=== PATIENT | male | born 1955 | race Caucasian/White ===

== ENCOUNTER 2018-04-23 01:51 | Outpatient (CLI) | payer BC, SELFPAY ==
[2018-04-23 08:29] LABS: Cholesterol 280 mg/dL (50-200); HDL Cholesterol 40 mg/dL (40-60); LDL CHOLESTEROL 209 mg/dL (<100); Triglyceride 174 mg/dL (30-150)
== END 2018-04-23 02:11 ==
PROVIDERS: PCP Nurse Practitioner; Visit Provider Nurse Practitioner
DX: E78.5 Hyperlipidemia, unspecified (principal)
CPT/HCPCS: 36415; 80061; 83721

== ENCOUNTER 2019-03-03 10:43 | Outpatient (CLI) | payer OTHER, SELFPAY | END 2019-03-03 11:03 | PROVIDERS: PCP Nurse Practitioner; Visit Provider Nurse Practitioner Family | DX: R00.2 Palpitations (principal); I49.3 Ventricular premature depolarization | CPT/HCPCS: 93225 ==

== ENCOUNTER 2019-03-08 00:54 | Outpatient (CLI) | payer OTHER, SELFPAY ==
--- NOTE | 2019-03-08 08:30 | ETT_ITS ---
*[facility]* *[facility]* [address] [place] [address] Stress Electrocardiography Dmitry protocol Date of study: 03/08/2019 *PATIENT PRESENTATION* Height: 177.8cm (70in) Blood Pressure: Weight: 113.6kg (250lb) BSA: 2.41m^2 Ordering physician: Jessica Sanchez Impressions: Pt developed what is likely a rate related LBBB at heart rates > 100 bpm. Stress test nondiagnostic: LBBB, poor quality tracings. Rec pharmaceutical MPI, echo, Holter, Summary: 1. Stress ECG conclusions: The stress ECG is non-diagnostic. Indication: R07.89. History: REASON FOR TESTING: STERNAL PAIN AND PALPITATIONS X 2-3 MONTHS. DID HAVE ASSOCIATED SHORTNESS OF GREATH WITH THE PALPITATIONS. PMH: DEPRESSION, ESSENTIAL HYPERTENSION, FATTY LIVER, ALCOHOLIC CIRRHOSIS, SLEEP APNEA. FAMILY HX: FATHER- HYPERTESION , TX AT AGE 52 WITH CABG 10 YEARS LATER, CAD. MOTHER- HYPERTENSION, ANGINA, CARDIAC STENTS. SMOKING: FORMER SMOKER X 25 YEARS. QUIT 40 YEARS AGO, DOES OCCAS. USE SMOKLESS TOBACCO. EXCERCISE: NONE Risk factors: Family history of coronary artery disease. Hypertension. Obesity. Dyslipidemia. Cholesterol: 280mg/dl. HDL: 40mg/dl. LDL: 209mg/dl. Triglycerides: 174mg/dl. ALLERGIES: PROCHLORPERAZINE, LISINOPRIL. MEDICATIONS:ACETAMINOPHEN 1000 MG BID NEEDED, ASPIRIN 81 MG DAILY, ATORVASTATIN 40 MG DAILY, HYDROCHLOROTHIAZIDE 25 MG DAILY, MULTIVITAMIN 1 DAILY, NAPROXEN SODIUM 220 MG NEEDED, NAPROXEN 500 MG BID NEEDED, OMEPRAZOLE 20 MG DAILY. Protocol: Dmitry protocol. Baseline ECG: LAST EKG 02/24/19- SINUS RHYTHM, FREQ. PAC'S. TODAY'S EKG-SINUS RHYTHYM, HR 68. Stress protocol: + +---+ +---+ !Stage !HR !BP (mmHg) !Sat! + +---+ +---+ !Baseline supine !68 !168/86 (113)!---! + +---+ +---+ !Baseline standing !77 !160/80 (107)!97%! + +---+ +---+ !Stage I; 1.7mph, 10degrees; 3 min !118!182/78 (113)!---! + +---+ +---+ !Stage II; 2.5mph, 12degrees; 3 min!143!194/76 (115)!96%! + +---+ +---+ !Recovery; 1 min !100!188/66 (107)!---! + +---+ +---+ !Recovery; 3 min !100!180/68 (105)!---! + +---+ +---+ !Recovery; 6 min !74 !160/76 (104)!---! + +---+ +---+ * Stress results: The rate-pressure product for the peak heart rate and blood pressure was 77855pl Hg/min. Stress ECG: EXCERCISE TESTING ENDED IN 6 MINS, 17 SECS DUE TO LBBB AND MEATING TARGET. MAX HR WAS 158, 101% OF TARGET. HYPERTENSIVE AT BASELINE, WITH A HYPERTENSIVE BLOOD PRESSURE RESPONSE. METS:7.47 ECTOPY: AT 39 SECONDS OF EXCERCISE, PT DEVELOPED A LEFT BUNDLE BRANCH BLOCK, WITH PVC'S. THIS CONTUED THROUGHOUT TESTING UNTIL 2:55 OF RECOVERY. ANGINA: NO REPORTED CHEST PAIN OR PRESSURE, DID REPORT A SENSATION OF FLUTTERING AT 4 MINS OF RECOVERY WITHOUT ANY ECTOPY ON EKG AT THE SAME TIME. ISCHEMIA: UNABLE TO APPRECIATE ANY ISCHEMIC CHANGES. FUNCTIIONAL CAPACITY: MILDLY DIMINISHED CAPACITY. The stress ECG is non-diagnostic. Study data: Jamie Kendall MD supervised and was readily available during the procedure. This study was interpreted by [facility]. Study status: Routine. Consent: The risks, benefits, and alternatives to the procedure were explained to the patient and informed consent was obtained. Procedure: Initial setup. A baseline ECG was recorded. Surface ECG leads and manual cuff blood pressure measurements were monitored. Heart sounds: Normal. Lung sounds: Normal. Treadmill exercise testing was performed using the Dmitry protocol. Study completion: The patient tolerated the procedure well and was discharged from the lab. Discharge: The patient left the laboratory in stable condition. Birthdate: Patient birthdate: 1955. Sex: Gender: male. Study date: Study date: 03/08/2019. Study time: 00:01 AM. Electronically signed by Jamie Kendall MD 03/08/2019 10:44
== END 2019-03-08 01:14 ==
PROVIDERS: PCP Nurse Practitioner; Visit Provider Nurse Practitioner Family
DX: R07.89 Other chest pain (principal); R94.31 Abnormal electrocardiogram [ECG] [EKG]; I44.7 Left bundle-branch block, unspecified; R00.2 Palpitations; R06.02 Shortness of breath; I10 Essential (primary) hypertension; E78.5 Hyperlipidemia, unspecified; Z82.49 Family history of ischemic heart disease and other diseases of the circulatory system; I49.3 Ventricular premature depolarization
CPT/HCPCS: 93016; 93018; 93227; 93017; 93226

== ENCOUNTER 2019-03-08 09:42 | Outpatient (CLI) | payer OTHER, SELFPAY ==
--- NOTE | 2019-03-09 13:22 | HOLTER_ITS ---
HOLTER MONITOR DATE OF DICTATION March 08, 2019 Baseline rhythm sinus. No supraventricular ectopy. Frequent single PVC, 2978 total, 3.6% total beat.10 couplet. No VT. Likely related bundle branch block pattern identified. No bradycardia. No symptoms. Average heart rate 75 beats per minute, range 60-127 beats per minute. 48-hour study. Jamie Kendall M.D. HINA/merlyn T - 03/09/2019
== END 2019-03-08 10:02 ==
PROVIDERS: PCP Nurse Practitioner; Visit Provider Nurse Practitioner Family
DX: R00.2 Palpitations (principal); I49.3 Ventricular premature depolarization
CPT/HCPCS: 93227; 93226

== ENCOUNTER 2019-03-08 18:02 | Outpatient (CLI) | payer OTHER, SELFPAY | END 2019-03-08 18:22 | PROVIDERS: PCP Nurse Practitioner; Referring Provider Nurse Practitioner; Visit Provider Internal Medicine Interventional Cardiology | DX: R69 Illness, unspecified (principal) ==

== ENCOUNTER 2019-03-09 12:57 | Outpatient (CLI) | payer OTHER, SELFPAY ==
[2019-03-09 14:29] LABS: TSH (W/Ref FT4) 1.54 uIU/mL (0.36-3.74)
== END 2019-03-09 13:17 ==
PROVIDERS: PCP Nurse Practitioner; Visit Provider Nurse Practitioner Family
DX: R00.2 Palpitations (principal)
CPT/HCPCS: 36415; 84443

== ENCOUNTER 2019-03-24 00:20 | Outpatient (CLI) | payer OTHER, SELFPAY ==
--- NOTE | 2019-03-24 07:01 | MERGEMPI_ITS ---
*[facility]* *[facility]* [address] [place] [address] Myocardial Perfusion Imaging - SPECT Dmitry protocol Date of study: 03/24/2019 *PATIENT PRESENTATION* Height: 177.8cm (70in) Blood Pressure: Weight: 113.6kg (250lb) BSA: 2.41m^2 Referring physician: Jamie Kendall MD Ordering physician: Jessica Sanchez Impressions: Normal perfusion by Tc99m Sestamibi Imaging. Summary: 1. Myocardial perfusion imaging: No myocardial perfusion defects noted. 2. The calculated left ventricular ejection fraction after stress: 53%. No left ventricular regional motion abnormality. 3. Stress: The target heart rate was not achieved. Test transitioned to pharmacologic when LBBB identified. 4. Rate related LBBB at 120 bpm. Indication: R07.9. History: REASON FOR TESTING: PATIENT TESTING TODAY FOR FURTHER RISK STRATIFICATION. FOR THE PAST 3 MONTHS HE REPORTS DULL SUBSTERNAL CHEST PAIN AND FLUTTERING FEELING, MOSTLY NOTED AT REST THAT HAPPENS EVERYDAY. TODAY HE DENIES CHEST PAIN BUT REPORTS OCCASIONAL FLUTTERING UPON ARRIVAL TO TESTING TODAY. NOTE: PATIENT HAD A NON DIAGNOSTIC REGULAR STRESS TEST 03/08/19, RETURNING TO MPI STRESS TEST TODAY. SIGNIFICANT PAST MEDICAL HISTORY: FATTY LIVER, NONALCOHOLIC STEATOHEPATITIS, ALCOHOLIC CIRRHOSIS OF LIVER WITHOUT ASCITES, OBSTRUCTIVE SLEEP APNEA. SMOKING STATUS: QUITE 1974; AT THAT TIME HE SMOKED FOR 4 YEARS 1 PPD. CURRENTLY OCCASIONALLY USES SMOKELESS TOBACCO AND HAS BEEN FOR APPROXIMATELY 25 YEARS. EXERCISE ROUTINE: DAILY ADL'S. Risk factors: Family history of coronary artery disease. Current tobacco use. Hypertension. Obesity. Dyslipidemia. Cholesterol: 280mg/dl. HDL: 40mg/dl. LDL: 209mg/dl. Triglycerides: 174mg/dl. ALLERGIES: LISINOPRIL, PROCHLORPERAZINE. MEDICATIONS: SERTRALINE 150 MG DAILY, OMEPRAZOLE 20 MG DAILY, ALEVE 220 MG PRN, MULTIVITAMIN DAILY, HYDROCHLOROTHIAZIDE 25 MG DAILY, ATORVASTATIN 40 MG DAILY, ASPIRIN 81 MG DAILY, ACETAMINOPHEN 1000 MG PRN. Imaging Technique: Protocol: Dmitry protocol. Acquisition: Gated SPECT; 1 day - rest/stress. The patient was imaged in the supine position. Attenuation correction used. Isotope administration: - Rest. Tc[99m]-sestamibi. Dose: 11.6mCi. Injection time: 08:25 AM. Injection to stress time: 00:45. - Stress. Tc[99m]-sestamibi. Dose: 36mCi. Injection time: 10:10 AM. 1-2 min before end of exercise Baseline ECG: SINUS BRADYCARDIA. 59 BPM. Stress protocol: + +---+ + + !Stage !HR !BP (mmHg) !Comments ! + +---+ + + !Baseline supine !59 !170/90 (117)! ! + +---+ + + !Baseline standing !70 !168/92 (117)! ! + +---+ + + !Stage I; 1.7mph, 10degrees; 3 min!114!190/80 (117)! ! + +---+ + + !Immediate post stress !124! ! ! + +---+ + + !Recovery; 1 min !98 !210/90 (130)! ! + +---+ + + !Baseline !66 !180/90 (120)! ! + +---+ + + !1 min !93 !170/80 (110)!Inject Regadenoson.! + +---+ + + !3 min !78 !160/88 (112)! ! + +---+ + + !6 min !72 !150/80 (103)! ! + +---+ + + * Stress results: STRESS TEST ENDED IN 5 MINUTES 43 SECONDS DUE TO LEFT BUNDLE BRANCH BLOCK. HYPERTENSIVE AT BASELINE NORMAL HEART RATE AND BLOOD PRESSURE RESPONSE TO EXERCISE. MAX HEART RATE:124 80 % OF TARGET HEART RATE ACHIEVED. MET'S: 6.43. NO ECTOPY. NO ANGINA. NO SIGNIFICANT ST SEGMENT CHANGES. UNABLE TO DETERMINE FUNCTIONAL CAPACITY D/T TRANSITION LEXISCAN REQUIRED. TRANSITIONED TO LEXISCAN STRESS TEST D/T LEFT BUNDLE BRANCH BLOCK OCCURING AFTER 3 MINUTES 46 SECONDS OF EXERCISE. STRESS TEST ENDED IN 6 MINUTES 34 SECONDS. HYPERTENSIVE AT BASELINE. NORMAL HEART RATE AND BLOOD PRESSURE RESPONSE TO LEXISCAN INJECTION. NO ECTOPY. CHEST PRESSURE ASSOCIATED WITH SOB AT APPROXIMATELY 1 MINUTE 30 SECONDS POST LEXISCAN INJECTION THAT SUBSIDED BY 3 MINUTES POST LEXISCAN INJECTION. NO SIGNIFICANT ST SEGMENT CHANGES. The target heart rate was not achieved. The rate-pressure product for the peak heart rate and blood pressure was 56563tg Hg/min. Myocardial perfusion: Imaging information: gated. No myocardial perfusion defects noted. Ventricular Function (Wall Motion): The calculated left ventricular ejection fraction after stress: 53%. No left ventricular regional motion abnormality. Study data: Jamie Kendall MD supervised and was readily available during the procedure. This study was interpreted by [facility]. Study status: Routine. Consent: The risks, benefits, and alternatives to the procedure were explained to the patient and informed consent was obtained. Procedure: Initial setup. A baseline ECG was recorded. Surface ECG leads and manual cuff blood pressure measurements were monitored. Heart sounds: Normal. Lung sounds: Normal. Treadmill exercise testing was performed using the Dmitry protocol. Study completion: All catheters inserted during the procedure were removed. The patient tolerated the procedure well and was discharged from the lab. Discharge: The patient left the laboratory in stable condition. Birthdate: Patient birthdate: 1955. Sex: Gender: male. Study date: Study date: 03/24/2019. Study time: 00:01 AM. Electronically signed by Jamie Kendall MD 03/24/2019 17:56
[2019-03-24] MEDS: Regadenoson 0.4 MG/5 ML SYR IVP (10:22)
== END 2019-03-24 00:40 ==
PROVIDERS: PCP Nurse Practitioner; Visit Provider Nurse Practitioner Family
DX: I44.7 Left bundle-branch block, unspecified (principal); R07.9 Chest pain, unspecified; I10 Essential (primary) hypertension
CPT/HCPCS: 78452; 93016; 93018; 93017; J2785

== ENCOUNTER 2019-03-25 03:46 | Outpatient (CLI) | payer OTHER, SELFPAY ==
--- NOTE | 2019-03-25 10:16 | MERGE_ITS ---
*[facility]* *[facility]* [address] [place] [address] Date of study: 03/25/2019 Transthoracic Echocardiography M-mode, complete 2D, complete spectral Doppler, and color Doppler *STUDY CONCLUSIONS* Summary: 1. Left ventricle: The cavity size was normal. Systolic function was normal. The estimated ejection fraction was 60-65%. There was no evidence of elevated ventricular filling pressure by Doppler parameters. 2. Mitral valve: There was mild regurgitation. 3. Right ventricle: The cavity size was normal. Wall thickness was normal. Systolic function was normal. 4. Atrial septum: No defect or patent foramen ovale was identified. 5. Pulmonary arteries: Pulmonary systolic pressure was in the range of 25mm Hg to 35mm Hg. 6. Inferior vena cava: The vessel was patent and normal in size. The respirophasic diameter changes were in the normal range (greater than or equal to 50%), consistent with normal central venous pressure. *PATIENT PRESENTATION* Height: 177.8cm (70in ) S/D Pressure: 139 / 82 Weight: 113.4kg (249.5lb ) BSA: 2.41m^2 Test start time: 10:25 AM. Test stop time: 11:10 AM. PERFORMING Unknown PERFORMING [facility] CABLE TENDER RT Malika (Norm)(CT), CS CONSULTING Jessica Sanchez ORDERING Jessica Sanchez REFERRING Jessica Sanchez *PROCEDURE DATA* Procedure information: This study was interpreted by [facility]. Pertinent images and digital data are archived for permanent storage and are available for subsequent review. No prior study was available for comparison. Study status: Routine. Transthoracic echocardiography. M-mode, complete 2D, complete spectral Doppler, and color Doppler. A Transthoracic Echocardiogram was performed. Scanning was performed from the parasternal, apical, subcostal, and suprasternal notch acoustic windows. Images were obtained using an [id number] cardiac ultrasound machine. Image quality was poor. Study completion: The patient tolerated the procedure well. History: PMH: Non diagnostic EST ( LBBB with HR >100) LBB . chest pain r07.9, i44.7. *CARDIAC ANATOMY* Left ventricle: The cavity size was normal. Systolic function was normal. The estimated ejection fraction was 60-65%. The tissue Doppler parameters were normal. Diastolic parameters were normal. There was no evidence of elevated ventricular filling pressure by Doppler parameters. Aortic valve: Doppler: There was no stenosis. There was no regurgitation. VTI ratio of LVOT to aortic valve: 0.72. Valve area (VTI): 2.3cm^2. Indexed valve area (VTI): 1cm^2/m^2. Peak velocity ratio of LVOT to aortic valve: 0.68. Valve area (Vmax): 2.2cm^2. Indexed valve area (Vmax): 0.9cm^2/m^2. Mean velocity ratio of LVOT to aortic valve: 0.62. Valve area (Vmean): 2cm^2. Indexed valve area (Vmean): 0.8cm^2/m^2. Mean gradient (S): 6mm Hg. Peak gradient (S): 11.9mm Hg. Aorta: Aortic root: The aortic root was normal in size. Ascending aorta: The ascending aorta was mildly dilated. Mitral valve: Doppler: There was no evidence for stenosis. There was mild regurgitation. Valve area by pressure half-time: 4cm^2. Indexed valve area by pressure half-time: 1.7cm^2/m^2. Peak gradient (D): 2.5mm Hg. Left atrium: The atrium was normal in size. Atrial septum: No defect or patent foramen ovale was identified. Right ventricle: The cavity size was normal. Wall thickness was normal. Systolic function was normal. Pulmonic valve: Doppler: There was no evidence for stenosis. There was no significant regurgitation. Tricuspid valve: Doppler: There was mild regurgitation. Pulmonary artery: Poorly visualized. Pulmonary systolic pressure was in the range of 25mm Hg to 35mm Hg. Right atrium: The atrium was normal in size. Pericardium: There was no pericardial effusion. Systemic veins: Inferior vena cava: Well visualized. The vessel was patent and normal in size. The respirophasic diameter changes were in the normal range (greater than or equal to 50%), consistent with normal central venous pressure. Baseline ECG: Normal sinus rhythm. Measurements Left ventricle Value Reference LV ID, ED, PLAX 4.8 cm 3.5 - 6.0 LV ID, ES, PLAX 3.1 cm 2.1 - 4.0 LV PW thickness, ED, PLAX 1.1 cm LV end-diastolic volume, 1-p A2C 83 ml LV ejection fraction, 1-p A2C 57 % LV end-diastolic volume, 1-p A4C 148 ml LV ejection fraction, 1-p A4C 62 % LV e', lateral 0.101 m/sec LV E/e', lateral 8 LV e', medial 0.064 m/sec LV E/e', medial 12 LV e', average 0.082 m/sec LV E/e', average 10 Ventricular septum Value Reference IVS thickness, ED, PLAX 1.0 cm LVOT Value Reference LVOT ID, A-P 2.0 cm LVOT area 3.2 cm^2 LVOT peak velocity, S 1.17 m/sec LVOT mean velocity, S 0.72 m/sec LVOT VTI, S 25.2 cm LVOT peak gradient, S 5.5 mm Hg LVOT mean gradient, S 2.5 mm Hg Stroke volume (SV), LVOT DP 81 ml Stroke index (SV/bsa), LVOT DP 34 ml/m^2 Aortic valve Value Reference Aortic valve peak velocity, S 1.7 m/sec Aortic valve mean velocity, S 1.2 m/sec Aortic valve VTI, S 35.0 cm Aortic mean gradient, S 6 mm Hg Aortic peak gradient, S 11.9 mm Hg VTI ratio, LVOT/AV 0.72 Aortic valve area, VTI 2.3 cm^2 Velocity ratio, peak, LVOT/AV 0.68 Aortic valve area, peak velocity 2.2 cm^2 Velocity ratio, mean, LVOT/AV 0.62 Aortic valve area, mean velocity 2 cm^2 Aortic valve area/bsa, mean velocity 0.8 cm^2/m^2 Aorta Value Reference Aortic root ID, ED 3.0 cm Ascending aorta ID, A-P, S 3.7 cm Left atrium Value Reference LA ID, A-P, ES 4.5 cm LA ID/bsa, A-P 1.9 cm/m^2 <=2.2 LA volume/bsa, ES, 1-p A4C 23 ml/m^2 LA volume, ES, 2-p 56 ml LA volume/bsa, ES, 2-p 23 ml/m^2 LA/aortic root ratio 1.53 Mitral valve Value Reference Mitral E-wave peak velocity 0.79 m/sec Mitral A-wave peak velocity 0.85 m/sec Mitral deceleration time 191 ms 150 - 230 Mitral pressure half-time 55 ms Mitral peak gradient, D 2.5 mm Hg Mitral E/A ratio, peak 0.94 Mitral valve area, PHT, DP 4 cm^2 Pulmonary veins Value Reference Pulmonary vein peak velocity, S 0.66 m/sec Pulmonary vein peak velocity, D 0.56 m/sec Pulmonary vein velocity ratio, peak, 1.17 S/D Pulmonary vein A-wave reversal peak 0.39 m/sec velocity Pulmonary vein A-wave reversal 185 ms duration Tricuspid valve Value Reference Tricuspid regurg peak velocity 2.5 m/sec Tricuspid peak RV-RA gradient 24.1 mm Hg Right atrium Value Reference RA area, ES, A4C 15.3 cm^2 8.3 - 19.5 Legend: (L) and (H) eligio values outside specified reference range. I have personally reviewed the images and have reviewed and edited the reported findings. Electronically signed by Jamie Kendall MD 03/25/2019 12:09
== END 2019-03-25 04:06 ==
PROVIDERS: PCP Nurse Practitioner; Visit Provider Nurse Practitioner Family
DX: I44.7 Left bundle-branch block, unspecified (principal); R07.9 Chest pain, unspecified; I34.0 Nonrheumatic mitral (valve) insufficiency
CPT/HCPCS: 93306

== ENCOUNTER 2019-04-05 08:25 | Outpatient (CLI) | payer OTHER, SELFPAY ==
[2019-04-05 09:54] LABS: ALT 58 U/L (16-63); AST 25 U/L (15-37); Albumin 3.9 g/dL (3.4-5.0); Alkaline Phosphatase 163 U/L (46-116); BUN 16 mg/dL (7-18); Bilirubin, Total 0.8 mg/dL (0.2-1.0); CREATININE 0.85 mg/dL (0.70-1.30); Calcium 9.2 mg/dL (8.5-10.1); Calculated LDL 108 mg/dL; Chloride 104 mmol/L (98-107); Cholesterol 186 mg/dL (50-200); Glucose 114 mg/dL (70-100); HDL Cholesterol 41 mg/dL (40-60); Potassium 4.5 mmol/L (3.5-5.1); Sodium 141 mmol/L (136-145); Total Protein 6.9 g/dL (6.4-8.2); Triglyceride 185 mg/dL (30-150)
== END 2019-04-05 08:45 ==
PROVIDERS: PCP Nurse Practitioner; Visit Provider Nurse Practitioner
DX: I10 Essential (primary) hypertension (principal); E78.5 Hyperlipidemia, unspecified; E66.9 Obesity, unspecified
CPT/HCPCS: 36415; 80053; 80061

== ENCOUNTER 2020-01-18 08:19 | Outpatient (CLI) | payer OTHER, SELFPAY ==
[2020-01-21 02:14] LABS: SARS-CoV-2 RNA Undetected (Undetected); SARS-CoV-2 Specimen Source Nasopharynx
== END 2020-01-18 08:39 ==
PROVIDERS: Visit Provider Family Medicine
DX: Z03.818 Encounter for observation for suspected exposure to other biological agents ruled out (principal)
CPT/HCPCS: U0003